=== PATIENT | female | born 1945 | race Hispanic/Latino ===

== ENCOUNTER 2017-05-03 08:16 | Outpatient (CLI) | payer MEDICARE ==
--- NOTE | 2017-05-03 09:18 | Mammography Report ---
BILATERAL MAMMOGRAM: FINDINGS: The breasts are almost entirely fat (<25% glandular). No mass, distortion, suspicious calcification, or skin change is seen. No significant change when compared to prior exams dating back to 2015. CAD was utilized. IMPRESSION: Negative mammogram. There is no mammographic evidence of malignancy. RECOMMENDATION: Follow-up per ACS guidelines. BI-RADS CATEGORY: 1 = Negative ACR BI-RADS MAMMOGRAPHIC CODES: 0 = Needs additional imaging evaluation; 1 = Negative; 2 = Benign; 3 = Probably benign; 4 = Suspicious; 5 = Malignant; 6 = Known biopsy-proven malignancy COMMENT: 1. Dense breast tissue, i.e., adenosis, fibrocystic changes, etc., may obscure an underlying neoplasm. 2. Approximately 10% of cancers are not detected with mammography. 3. A negative mammography report should not delay biopsy if a clinically suspicious mass is present. COMMENT: Patient follow-up letters are generated in [employer].
== END 2017-05-03 08:17 | disposition home or self-care (01) ==
LOC: MAMMO 08:16
PROVIDERS: ATTEND Nurse Practitioner Family
DX: Z12.31 Encounter for screening mammogram for malignant neoplasm of breast (principal)
CPT/HCPCS: 77067; G0202

== ENCOUNTER 2017-09-03 13:00 | Outpatient (CLI) | payer MEDICARE ==
--- NOTE | 2017-09-03 14:48 | Cat Scan Report ---
CT CHEST WITHOUT CONTRAST: HISTORY: Thoracic aortic aneurysm. COMPARISON: 08/22/16. TECHNIQUE: Helical CT in 1.25mm intervals without IV contrast. Sagittal and coronal reformatted images. FINDINGS: Thyroid gland: Normal. Tracheobronchial tree: Normal. Esophagus: Normal. Heart: Normal. Pericardium: Normal. Mediastinum: No mass or adenopathy. Mild dilatation of the ascending aorta is stable at 4.4 cm. The descending thoracic aorta measures 3.2 cm at the same level. The aortic arch measures 3.6 cm. Lung Gustafson: Normal. Pleural Spaces: Normal. Musculoskeletal: Mild thoracolumbar spondylosis. No fracture or suspicious bony lesion. IMPRESSION: Stable dilatation of the ascending aorta measuring 4.4 cm.
== END 2017-09-03 13:01 | disposition home or self-care (01) ==
LOC: CT 13:00
PROVIDERS: ATTEND Internal Medicine Cardiovascular Disease
DX: I71.2 Thoracic aortic aneurysm, without rupture (principal); M47.895 Other spondylosis, thoracolumbar region
CPT/HCPCS: 71250

== ENCOUNTER 2018-08-05 08:04 | Outpatient (CLI) | payer MEDICARE ==
--- NOTE | 2018-08-05 10:49 | Mammography Report ---
BILATERAL DIGITAL SCREENING MAMMOGRAM with CAD: 08/05/18 08:04:00 CLINICAL: Routine screening. COMPARISON:05/03/17 FINDINGS: There are bilateral scattered fibroglandular densities. A right asymmetry on the CC view requires additional imaging.No architectural distortion or suspicious calcifications.The left breast is negative. IMPRESSION: Right asymmetry requiring further workup. BI-RADS CATEGORY: 0 -- Additional Imaging Evaluation Required RECOMMENDATION: Recall for right ML, rolled CC and CC spot magnification views and right breast ultrasound if needed. ACR BI-RADS MAMMOGRAPHIC CODES: 0 = Needs additional imaging evaluation; 1 = Negative; 2 = Benign; 3 = Probably benign; 4 = Suspicious; 5 = Malignant; 6 = Known biopsy-proven malignancy COMMENT: 1. Dense breast tissue, i.e., adenosis, fibrocystic changes, etc., may obscure an underlying neoplasm. 2. Approximately 10% of cancers are not detected with mammography. 3. A negative mammography report should not delay biopsy if a clinically suspicious mass is present. COMMENT: Patient follow-up letters are generated via our [employer] application.
== END 2018-08-05 08:05 | disposition home or self-care (01) ==
LOC: MAMMO 08:04
PROVIDERS: ATTEND Internal Medicine
DX: Z12.31 Encounter for screening mammogram for malignant neoplasm of breast (principal); E78.00 Pure hypercholesterolemia, unspecified; I10 Essential (primary) hypertension; Z87.891 Personal history of nicotine dependence
CPT/HCPCS: 77067

== ENCOUNTER 2018-08-19 09:00 | Outpatient (CLI) | payer MEDICARE ==
--- NOTE | 2018-08-19 10:12 | Mammography Report ---
RIGHT DIGITAL DIAGNOSTIC MAMMOGRAM : 08/19/18 09:00:00 CLINICAL: Recalled for asymmetry. COMPARISON:08/05/17 screening FINDINGS: Additional mammographic views were performed and are negative. IMPRESSION: No mammographic evidence of malignancy. BI-RADS CATEGORY: 1 -- Negative RECOMMENDATION: Routine mammographic screening in one year. ACR BI-RADS MAMMOGRAPHIC CODES: 0 = Needs additional imaging evaluation; 1 = Negative; 2 = Benign; 3 = Probably benign; 4 = Suspicious; 5 = Malignant; 6 = Known biopsy-proven malignancy COMMENT: 1. Dense breast tissue, i.e., adenosis, fibrocystic changes, etc., may obscure an underlying neoplasm. 2. Approximately 10% of cancers are not detected with mammography. 3. A negative mammography report should not delay biopsy if a clinically suspicious mass is present. COMMENT: Patient follow-up letters are generated via our [employer] application.
== END 2018-08-19 09:01 | disposition home or self-care (01) ==
LOC: MAMMO 09:00
PROVIDERS: ATTEND Internal Medicine
DX: R92.8 Other abnormal and inconclusive findings on diagnostic imaging of breast (principal); E78.00 Pure hypercholesterolemia, unspecified; I10 Essential (primary) hypertension; Z87.891 Personal history of nicotine dependence

== ENCOUNTER 2018-10-15 07:31 | Outpatient (CLI) | payer MEDICARE ==
--- NOTE | 2018-10-15 09:19 | Cat Scan Report ---
CT CHEST WITHOUT CONTRAST INDICATION: Thoracic aortic aneurysm without rupture. COMPARISON: Multiple prior chest CTs dating back to 07/11/2009, the most recent dated 09/03/2017. FINDINGS: Noncontrast chest CT demonstrates stable heart size/slight cardiomegaly. No effusions. Assessment of the great vessels and for detecting subtle lymphadenopathy limited due to lack of IV contrast. No definite size significant adenopathy though suspected with few subcentimeter mediastinal and axillary lymph nodes incidentally noted. Pulmonary arterial hypertension not excluded. Mildly aneurysmal ascending aorta with approximately 4.4 cm caliber as on axial series 2, image 50 again noted, tapering to 3.2 cm at the arch as on axial image 34 and descending aortic caliber 3.1 cm as on axial image 66. Few aortic atherosclerotic calcifications. Patent central airway. Heterogeneous, though overall normal thyroid size with numerous small hypodensities on the right, the largest approximately 1.3 cm as on axial image 12 again noted. Slight bibasilar scarring. Nonspecific distal esophageal wall prominence/thickening, not excluded for gastroesophageal reflux and/or hiatal hernia, amongst others. At least 2 peripherally calcified gallstones measure up to 1.5 cm and contain air. Approximately 1.7 cm left interpolar cortical hypodensity/cyst posteriorly partially imaged. Mild colonic diverticulosis. Multilevel spinal degenerative changes as spurring. Osteopenia possible. CONCLUSION: No acute CT abnormality on this unenhanced chest CT with mild ascending aortic fusiform aneurysm stable dating back to 2009 and various other incidental findings, as detailed above. Please correlate. Thank you for the opportunity to participate in this patient's care.
== END 2018-10-15 07:32 | disposition home or self-care (01) ==
LOC: CT 07:31
PROVIDERS: ATTEND Internal Medicine Cardiovascular Disease
DX: I71.2 Thoracic aortic aneurysm, without rupture (principal); E78.00 Pure hypercholesterolemia, unspecified; I10 Essential (primary) hypertension
CPT/HCPCS: 71250